=== PATIENT | male | born 1945 | race Caucasian/White ===

== ENCOUNTER 2022-06-06 08:08 | Day surgery (SDC) | payer MEDICARE, MEDICAID ==
[2022-06-06] VITALS (12 sets, daily range): BP systolic 138–167; BP diastolic 86–105
[~2022-06-06] VITALS: Ht 177.8 cm; Wt 73.0 kg
[~2022-06-06 08:08] MED LIST: ACET-1008 PO; ASPI-611 PO; ATOR40TA71 PO; ATR0.5NEB IH; DOCU-345 PO; FLO0.4C PO; HYDR-3965 PO; LIDOCAINE PATCH 4% TOP; LISI40TA13 PO; MELA3TAB39 PO; PANT-47 PO; POLY119P2 PO; SENN-263 PO; albuterol 2.5 MG/3 ML nebule NEB ONE; ceFAZolin inj. 2,000 MG in dextrose 5%-water 100 ML IV ONE; famotidine 20mg tablet PO ONE; ringers solution, lacted 1,000 ML IV SCH
--- NOTE | 2022-06-06 08:30 | NUR ---
PATIENT REFUSED BREATHING TX PRE OP .
[2022-06-06 09:38] LABS: ALBUMIN 3.3 G/DL (3.4-5.0); ALKALINE PHOSPHATASE 92 IU/L (46-116); BLOOD UREA NITROGEN 26 MG/DL (7-18); BUN/CREATININE RATIO 24.3 (5.4-32.0); CALCIUM 8.9 MG/DL (8.5-10.1); CHLORIDE 104 MMOL/L (99-107); CREATININE 1.07 MG/DL (0.60-1.10); PRE OP ALT 38 U/L (30-65); PRE OP AST 25 U/L (10-37); PRE OP BILIRUB, TOTAL 1.1 MG/DL (0.0-1.0); PRE OP GLUCOSE 125 MG/DL (70-104); PRE OP POTASSIUM 4.4 MMOL/L (3.4-5.1); TOTAL CARBON DIOXIDE 24.6 MMOL/L (24-32); TOTAL PROTEIN 6.5 G/DL (6.4-8.2); eGFR 67 ML/MIN
[2022-06-06 09:46] LABS: BASOPHILS % (AUTO) 0.5 % (0-1); EOSINOPHILS # (AUTO) 0.1 X10'3 (0-0.9); EOSINOPHILS % (AUTO) 1.3 % (0-6); LYMPHOCYTES # (AUTO) 0.8 X10'3 (1.1-4.8); LYMPHOCYTES % (AUTO) 9.3 % (21-51); MEAN CORPUSCULAR HEMOGLOBIN 30.1 PG (27.0-31.0); MEAN CORPUSCULAR HGB CONC 33.1 g/dL (33.0-36.5); MEAN CORPUSCULAR VOLUME 90.9 FL (78-98); MEAN PLATELET VOLUME 7.1 FL (7.4-10.4); MONOCYTES # (AUTO) 0.8 X10'3 (0-0.9); MONOCYTES % (AUTO) 9.2 % (2-12); NEUTROPHILS # (AUTO) 6.5 X10'3 (1.8-7.7); NEUTROPHILS % (AUTO) 79.7 % (42-75); PRE OP HEMOGLOBIN 12.6 g/dL (14.0-17.9); PRE OP PLATELET COUNT 215 X10'3 (140-440); RED BLOOD COUNT 4.18 X10'6 (4.70-6.10); RED CELL DISTRIBUTION WIDTH 15.9 % (11.5-14.5)
[2022-06-06 09:56] LABS: PRE OP ANION GAP 8 (8-16); PRE OP SODIUM 137 MMOL/L (135-145)
[2022-06-06] MEDS ORDERED: sevoflurane 250ml liquid IH ONE (11:22)
[2022-06-06] MEDS ORDERED: LIDOcaine 2% (20mg/ml) 5ml vial ONE (11:22)
[2022-06-06] MEDS ORDERED: FENTANYL CITRATE/PF 50 MCG/1 ML VIAL ONE ×2 (11:27→11:40)
[2022-06-06] MEDS ORDERED: propofol inj 20 ML IV ONE (11:28)
[2022-06-06] MEDS ORDERED: ePHEDrine 50MG/ML INJ. ONE (11:54)
[2022-06-06] MEDS ORDERED: dexamethasone sod phosphate 4mg/ml inj. ONE (11:54)
[2022-06-06] MEDS ORDERED: ondansetron/PF 4mg/2ml inj ONE (11:54)
--- NOTE | 2022-06-06 12:21 | NUR ---
Received from OR via , accompanied by Anesthesiologist DR SAWYER and report given by Anesthesiolgist. VSS. CULTURE SENT, LUIS FERNANDO OUT, STERI STRIP ON LEFT GROIN AND WOUND VAC ON RIGHT GROIN.SOFT NO BLOOD DRAINAGE. 20G IV IN RIGHT FA. ON MASK AT 10 LITERS. Addendum: 06/06/22 at 1256 by Jenny Griffin RN Amended: Links added.
--- NOTE | 2022-06-06 14:00 | NUR ---
GAVE REPORT TO [facility].
--- NOTE | 2022-06-06 14:01 | NUR ---
PATIENT MEETS DISCHARGE CRITERIA. VSS. IV DC'D WITH NO ISSUES. WOUND VAC IN PLACE AND WORKING PROPERLY. PATIENT PUT HIS DENTURES BACK IN HIMSELF. AWAITING ALTAGRACIA CARGO FOR HIS RETURN RIDE TO [facility]. Addendum: 06/06/22 at 1409 by Jenny Griffin RN Amended: Links added.
== END 2022-06-06 14:01 | disposition home or self-care (01) ==
LOC: PAS 08:08
PROVIDERS: ATTEND Surgery
DX: T82.898A Other specified complication of vascular prosthetic devices, implants and grafts, initial encounter (principal); I97.89 Other postprocedural complications and disorders of the circulatory system, not elsewhere classified; I89.8 Other specified noninfective disorders of lymphatic vessels and lymph nodes; T81.31XA Disruption of external operation (surgical) wound, not elsewhere classified, initial encounter; I10 Essential (primary) hypertension; F17.210 Nicotine dependence, cigarettes, uncomplicated; Z98.890 Other specified postprocedural states; Z95.820 Peripheral vascular angioplasty status with implants and grafts; Z82.49 Family history of ischemic heart disease and other diseases of the circulatory system; Z79.82 Long term (current) use of aspirin; Z79.899 Other long term (current) drug therapy; Y83.8 Other surgical procedures as the cause of abnormal reaction of the patient, or of later complication, without mention of misadventure at the time of the procedure
CPT/HCPCS: 36415; 80053; 82948; 85025; 87070; 87075; 87077; 87102; 87186; 97605; J0690; J1100; J2405; J2704; J3010; J3490; J7030; J7060; J7120; Z7506; Z7512; A4618; A7000